=== PATIENT | female | born 1985 | race Caucasian/White ===

== ENCOUNTER 2016-12-27 10:40 | Day surgery (SDC) | payer BC ==
[2016-12-27] VITALS (9 sets, daily range): BP systolic 115–153; BP diastolic 73–108; PULSE 7–93; TEMP 97–97.3
[~2016-12-27] VITALS: Ht 172.7 cm; Wt 146.9 kg
[~2016-12-27 10:40] MED LIST: LORTAB 5/500 501 TAB PO; MOTRIN 600600 MG/TAB PO; NO HOME MEDICATIONS; PERCOCET 325 MG1 TA2 PO
[2016-12-27] MEDS ORDERED: NORCO 325 MG-7.1 TAB PO (16:46)
[2016-12-28] MEDS ORDERED: LEVAQUIN 750MG750 M1 PO ×2 (12:05→12:08)
== END 2016-12-27 18:00 | disposition home or self-care (01) ==
LOC: SDCO 10:40
DX: K80.10 Calculus of gallbladder with chronic cholecystitis without obstruction (principal); E16.1 Other hypoglycemia; E66.01 Morbid (severe) obesity due to excess calories; F41.9 Anxiety disorder, unspecified; F32.9 Major depressive disorder, single episode, unspecified; Z68.42 Body mass index [BMI] 45.0-49.9, adult; Z80.3 Family history of malignant neoplasm of breast; Z83.3 Family history of diabetes mellitus; Z82.49 Family history of ischemic heart disease and other diseases of the circulatory system
CPT/HCPCS: J0690; J1100; J1885; J2270; J2405; J2550; J2704; J2710; J3010; J7120

== ENCOUNTER 2016-12-28 10:34 | Emergency (ER) | payer BC ==
[~2016-12-28] VITALS: Ht 172.7 cm; Wt 147.3 kg
[~2016-12-28 10:34] MED LIST changes: +NORCO 325 MG-7.1 TAB PO
[2016-12-28 10:37] VITALS: TEMP 98.8
[2016-12-28 11:26] LABS: BASO % 0.2 % (0.0-2.0); EOS % 0.1 % (0-4.0); GRAN # 15.9 (1.4-6.5); GRAN % 88.4 % (42.2-75.2); HEMATOCRIT 43.6 % (37.0-47.0); HEMOGLOBIN 14.1 g/dl (12.5-16.0); LYMPH # 1.3 (1.2-3.4); LYMPH % 7.2 % (20.0-51.0); MEAN CELL VOLUME 75 fl (80.0-100.0); MEAN CORPUSCULAR HEMOGLOBIN 24 pg (27.0-31.0); MEAN CORPUSCULAR HGB CONC 32 g/dl (33.0-37.0); MONO # 0.6 (0.1-0.6); MONO % 3.6 % (1.7-9.3); PLATELET COUNT 274 K/mm3 (130-400); RED BLOOD COUNT 5.81 M/mm3 (4.10-5.30)
[2016-12-28 11:37] LABS: ADJUSTED CALCIUM 8.9 mg/dL (8.4-10.2); ALBUMIN 4.1 gm/dL (3.5-5.0); BILIRUBIN,TOTAL 0.8 mg/dL (0.0-1.0); C-REACTIVE PROTEIN 1.1 mg/dL (0.0-0.9); CREATININE, serum 0.59 mg/dL (0.52-1.25); POTASSIUM 4.2 mmol/L (3.4-5.0); TOTAL PROTEIN 7.6 gm/dL (6.4-8.2)
[2016-12-28] MEDS ORDERED: LEVAQUIN 750MG750 M1 PO ×2 (12:05→12:08)
[2016-12-28 12:35] VITALS: BP 121/77; PULSE 88
== END 2016-12-28 12:38 | disposition home or self-care (01) ==
LOC: COL.ER 10:34
PROVIDERS: Family Medicine
DX: G89.18 Other acute postprocedural pain (principal); R10.13 Epigastric pain; R10.11 Right upper quadrant pain
CPT/HCPCS: J2270; J2550; J7030